=== PATIENT | male | born 1960 | race Caucasian/White ===

== ENCOUNTER 2023-09-18 16:10 | Outpatient (CLI) | payer BC | END 2023-09-18 16:11 | disposition home or self-care (01) | LOC: CSHRAD 16:10 | PROVIDERS: ATTEND Internal Medicine Rheumatology | DX: M46.1 Sacroiliitis, not elsewhere classified (principal) | CPT/HCPCS: 72202 ==

== ENCOUNTER 2024-09-06 08:14 | Outpatient (CLI) | payer BC ==
[2024-09-06] MEDS ORDERED: Iopamidol 370 76% 100 ML VIAL ONE (11:30)
== END 2024-09-06 08:15 | disposition home or self-care (01) ==
LOC: CSHCT 08:14
PROVIDERS: ATTEND Surgery
DX: I87.1 Compression of vein (principal); K76.9 Liver disease, unspecified; N28.1 Cyst of kidney, acquired; N40.0 Benign prostatic hyperplasia without lower urinary tract symptoms
CPT/HCPCS: 74178; 82565; Q9967